=== PATIENT | female | born 1985 | race Caucasian/White ===

== ENCOUNTER 2022-01-05 10:33 | Day surgery (SDC) | payer MEDICARE ==
[~2022-01-05 10:33] MED LIST: XYLOCAINE 1% HCL 20 ML MDV ONE
[2022-01-05] MEDS ORDERED: EXPAREL 133 MG/10 ML VIAL IJ ONE (10:34)
[2022-01-05] MEDS ORDERED: Marcaine Mpf 0.5% Vial 30 Ml IJ ONE (10:34)
[2022-01-05] MEDS ORDERED: CEFAZOLIN 2 GM-D5W BAG** 2 GM/50 ML ML IV ONE (11:44)
[2022-01-05] MEDS ORDERED: Lactated Ringers 1,000 ML IV ONE ×2 (11:45→14:44)
[2022-01-05] MEDS ORDERED: Lactated Ringers 1,000 ML IV SCH (12:00)
[2022-01-05] MEDS ORDERED: CEFAZOLIN 2 GM-D5W BAG** 2 GM/50 ML ML IV SCH (12:00)
[2022-01-05] MEDS ORDERED: Pepcid 20 MG VIAL IV ONE (12:28)
[2022-01-05] MEDS ORDERED: Versed 2 MG/2 ML Injection IV PRN (12:28)
[2022-01-05] MEDS ORDERED: Transderm Scop 1.5MG Patch TOP PRN (12:28)
[2022-01-05] MEDS ORDERED: Reglan 10 MG/2 ML IV ONE (12:28)
[2022-01-05] MEDS ORDERED: Xopenex 1.25 MG/0.5 ML UD NEBULE IH ONE (12:30)
[2022-01-05] MEDS ORDERED: Sodium Chloride 3 ML UD NEBULES IH ONE (12:32)
[2022-01-05] MEDS ORDERED: Zemuron 100 MG/10 ML ONE ×2 (13:29→16:08)
[2022-01-05] MEDS ORDERED: Xylocaine-Mpf 2% 5 Ml Vial ONE (13:29)
[2022-01-05] MEDS ORDERED: Decadron 4 MG INJ ONE (13:29)
[2022-01-05] MEDS ORDERED: Zofran 4 MG/2 ML VIAL ONE (13:29)
[2022-01-05] MEDS ORDERED: DIPRIVAN 200 MG/20 ML IV ONE (13:29)
[2022-01-05] MEDS ORDERED: SUBLIMAZE 100 MCG/2 ML ONE ×3 (13:30→17:43)
[2022-01-05] MEDS ORDERED: Sensorcaine 0.25% 10 ML ONE (13:37)
[2022-01-05] MEDS ORDERED: Versed 2 MG/2 ML Injection ONE (13:38)
[2022-01-05] MEDS ORDERED: OFIRMEV 100 ML IV ONE (13:38)
[2022-01-05] MEDS ORDERED: DEXMEDETOMIDINE 80 MCG/20ML-NS IV ONE (13:39)
[2022-01-05] MEDS ORDERED: Pre-Attached Lta Kit TP ONE (14:20)
[2022-01-05] MEDS ORDERED: EPINEPHRINE 1MG/ML AMP ONE (14:40)
[2022-01-05] MEDS ORDERED: Ketamine HCl 50 MG/ML ONE ×2 (15:18→16:17)
[2022-01-05] MEDS ORDERED: BLOXIVERZ IV ONE (17:06)
[2022-01-05] MEDS ORDERED: ROBINUL ONE ×2 (17:06→17:07)
--- NOTE | 2022-01-05 17:42 | XRAY ---
Indication: Left ankle calcaneal osteotomy with lateral ankle stabilization. Intraoperative fluoroscopy provided for 3 minutes 15 seconds. 43 images ultimately demonstrates mid to posterior calcaneal osteotomy with 2 fixation screws. Correlate with intraoperative findings/report.
[2022-01-05 19:02] VITALS: BP 147/95; PULSE 72; O2SAT 98
--- NOTE | 2022-01-06 08:54 | OP ---
SURGERY DATE/TIME: 01/05/2022 1352 PREOPERATIVE DIAGNOSES: 1) Left ankle pain. 2) Lateral ankle instability. 3) Pes cavus. 4) Painful with ambulation. POSTOPERATIVE DIAGNOSES: 1) Left ankle pain. 2) Lateral ankle instability. 3) Pes cavus. 4) Painful with ambulation. PROCEDURES: 1) Ankle arthroscopy with synovectomy. 2) Lateral ankle stabilization. 3) Plantar fasciectomy. 4) Peroneus longus peroneus brevis tendon transfer. 5) Dweyer calcaneal osteotomy. SURGEON: Raymond Pruett DPM. REST ROOM MAID: None. ANESTHESIA: General plus a preoperative regional block. See anesthesia report for details. ESTIMATED BLOOD LOSS: 120 cc. MATERIALS: 2-0 Vicryl, 3-0 Nylon, 2.9 JuggerKnot to 2.9 Quattro Link, internal brace with two - 1.45 suture JuggerKnot suture anchors for Brostrom procedure, one - 6.5 x 50 with 60 mm thread and one - 6.5 x 35 mm for the Dweyer calcaneal osteotomy. INJECTABLES: See anesthesia report for details. INDICATION FOR SURGERY: Lulú is a very pleasant 36-year-old female who has a chronic history of lateral ankle instability. The patient on clinical examination and assessment had multiple rounds of ankle sprain for which she had conservative therapy for this issue. The patient has never fully recovered from her most recent lateral ankle sprain which is becoming more and more difficult for her. The patient did have a clinical examination and on weightbearing exam demonstrated a varus heel position which resulted in her wearing the outsides of her shoes fairly quickly and leading to continuous lateral ankle instability. Options have been exhausted from conservative standpoint with this treatment with immobilization, injections and physical therapy. The patient does have some weakness to the peroneus brevis on clinical examination as well as a reducible varus deformity. Discussion with the patient in regards to addressing the lateral ankle instability was had in regards to the calcaneal varus. Due to the fact that her calcaneus was varus the likelihood of the lateral ankle instability resolving with a simple addressing of the lateral ankle ligament was low or lower than if we were to address the osseous issues that resulted in her abnormal biomechanics. The patient agreed to surgical intervention. She understands all risks, complications and benefits of the procedure including but not limited to delayed skin healing, nonskin healing, under correction of deformity, possibility of need for repeat surgical intervention, possible irritating retained hardware and possibility of need for surgical intervention at a later date. No guarantees were provided as to the outcome of surgical intervention. She understands the procedure and the purpose of the procedure. Plenty of time was allowed for the patient to ask questions to the patient's apparent satisfaction. No guarantees were provided as to the outcome. It is with that we decided to proceed with surgical intervention. DESCRIPTION OF PROCEDURE AND FINDINGS: The patient is brought into the OR and placed on the OR table in the supine position. At this time a well-padded thigh tourniquet was applied to the patient's left thigh and the left lower extremity was prepped and draped in the typical sterile fashion. At this time, an 18 gauge needle with 30 cc of lactated Ringer's was injected into the ankle joint insufflating the joint. At this time, an 11 blade was utilized to make a skin incision just medial to the tibialis anterior tendon and advanced with a blunt dissection down to the level of the ankle joint capsule. At this time an obturator with trocar were introduced. The obturator was removed and the 4.0 mm 30 degree camera was introduced into the ankle joint. The camera was advanced to the lateral aspect of the ankle where an incision was made under laminated guidance to insure no damage to the superficial peroneal nerve occurred. At this time an 11 blade was utilized to make an incision and blunt dissection was made down to the level of the ankle joint. At this time the ankle was inspected and a synovectomy occurred of the anterior ankle joint capsule removing any nonviable and synovial tissue. Following this the camera and the shaver were removed from the portal site. Attention was directed to the lateral aspect of the ankle where a [place] was placed over the distal aspect of the ankle joint dissecting the talus. At this time an incision was made at the skin over the lateral aspect of the fibula. The blunt and sharp dissection was carried down to the level of the ankle joint capsule. An incision was made making a 2 mm cut around the fibula releasing the anterior talofibular ligament from this joint. At this time identification of the joint was made and the lateral wall of the talus was inspected for any nonviable tissue in this area. Scar tissue was debrided from this area. The internal brace portion of the procedure was performed. A drill with a 2.9 JuggerKnot was introduced to the lateral aspect of the junction of the neck and the body of the talus aiming dorsal so not to violate the posterior facet this was checked under fluoroscopic guidance. Following this the JuggerKnot was introduced and checked to insure that there is minimal slippage of the JuggerKnot this was advanced utilizing [employer] Link with the foot inverted into the fibula under minimal tension and then internal brace component of the procedure was finished. Following this stress views were taken demonstrating no longer any gapping at the lateral ankle. Following this the Brostrom portion of the procedure was carried out utilizing two - 1.45 JuggerKnot into the foot print of the fibula and re-approximating the anterior talofibular ligament as well as the extensor retinaculum in a Brostrom-Otoole type procedure. Following this, attention was directed under fluoroscopic guidance to the lateral aspect of the calcaneus where a [place] was utilized to plan out the surgical site for the Dweyer calcaneal osteotomy. Incision was carried down utilizing a 15 blade being careful not to violate any neurovascular structures. The sural nerve was encountered in this area and was reflected out of the surgical site. At this time, attention was directed to the plantar aspect of the incision where the plantar stripping portion of the procedure was carried out except for the adductor hallucis portion of the resection which was carried out after the Dweyer calcaneal osteotomy. At this time the peroneal tendon sheath was incised and the peroneal tendons were scored. The peroneus longus tendon was identified and resected. Gentle abrasion of both tendons occurred at the resection point and under tension the peroneus longus was tenodesed to the peroneus longus tendon to give extra power with eversion. Following this a Dweyer calcaneal osteotomy was performed. The guide wires were 2.0 mm and utilized to plan out the osteotomy angles. The proximal K-wire was used to mimic the position of the longitudinal axis of the tibia and the distal K-wire was used to mimic the angle of the calcaneus. An approximate 9 mm wedge was then resected from the heel utilizing a 31 mm blade and then finished utilizing osteotome. The wedge was removed the site in one piece. Following this, K-wires were introduced from the calcaneal tuber into the body of the calcaneus checking its position under fluoroscopic guidance. Under the lateral calcaneal view, there was minimal displacement and the varus position was corrected. Following this, a 35 mm x 6.5 partially threaded screw was introduced into the calcaneus, this was checked under fluoroscopic guidance and the position was deemed in slight valgus position. Following this the incision sites were cleansed with copious amounts of sterile saline. 2-0 Vicryl was utilized to coapt the subcutaneous skin in a single interrupted-type fashion and 3-0 Nylon was utilized in horizontal mattress and simple interrupted-type fashion to the incision site. A dressing consisting of Betadine, Adaptic, 4x4, Kerlix was applied to the left ankle and then a very well-padded posterior splint was applied to the patient's left ankle with the foot orthogonal relative to the longitudinal aspect of the leg. The patient was then reversed from anesthesia and returned to the postoperative anesthesia care unit with vital signs stable and vascular status intact. The patient handled the procedure as well as the anesthesia without significant complication. Postoperative orders as indicated in the patient's discharge chart.
--- NOTE | 2022-01-06 14:54 | XRAY ---
3 minutes and 15 seconds of fluoroscopy was used in surgery for a left ankle calcaneal osteotomy with lateral ankle stabilization
== END 2022-01-05 19:05 | disposition home or self-care (01) ==
LOC: SDC 10:33
PROVIDERS: ATTEND Podiatrist Foot & Ankle Surgery
DX: M25.372 Other instability, left ankle (principal); M25.572 Pain in left ankle and joints of left foot; Q66.72 Congenital pes cavus, left foot; R26.2 Difficulty in walking, not elsewhere classified; M79.672 Pain in left foot; M65.872 Other synovitis and tenosynovitis, left ankle and foot; R26.89 Other abnormalities of gait and mobility
CPT/HCPCS: 27690; 27698; 28060; 28300; 29898; 73610; 76000; 94640; C1713; 64450; J0171; J0690; J1100; J2250; J2405; J2704; J2710; J3010; A9270-GY

== ENCOUNTER 2025-03-21 11:13 | Day surgery (SDC) | payer MEDICARE ==
[2025-03-21] MEDS ORDERED: CEFAZOLIN SODIUM ONE (11:20)
[2025-03-21] MEDS: Lactated Ringers 1,000 ML IV SCH (12:15)
[2025-03-21 12:33] VITALS: RESP 18
[2025-03-21 13:00] LABS: Hematocrit 43.2 % (34.1-44.9); Hemoglobin 14.1 g/dL (11.2-15.7); Mean Corpuscular Hemoglobin 32.6 pg (25.6-32.2); Mean Corpuscular Hgb Concent. 32.6 g/dL (32.2-35.5); Platelet Count 143 x10^3/uL (182-369); Red Blood Count 4.33 x10^6/uL (3.93-5.22); White Blood Count 7.3 x10^3/uL (3.98-10.04)
[2025-03-21 13:16] LABS: Calcium 8.6 mg/dL (8.4-10.2); Carbon Dioxide 22.0 mmol/L (22-30); Creatinine 1 0.62 mg/dL (0.52-1.04); EST GLOMERULAR FILTRATION RATE 114.7 ML/MIN; Glucose 88.0 mg/dL (74-106); Potassium 4.4 mmol/L (3.5-5.1); SGOT/AST 23.0 U/L (14-36); SGPT/ALT 19.0 U/L (0-35); Total Protein 6.7 g/dL (6.3-8.2)
[2025-03-21] MEDS ORDERED: Marcaine Mpf 0.5% Vial 30 Ml ONE (13:18)
[2025-03-21] MEDS ORDERED: Xylocaine 1% Vial 30 ML PF IJ ONE (13:18)
[2025-03-21] MEDS ORDERED: Versed 2 MG/2 ML Injection ONE (13:33)
[2025-03-21] MEDS ORDERED: propofoL IV ONE (13:33)
[2025-03-21] MEDS ORDERED: SUBLIMAZE 100 MCG/2 ML ONE ×3 (13:33→16:59)
[2025-03-21] MEDS ORDERED: ROCURONIUM BROMIDE IV ONE ×2 (13:33→14:37)
[2025-03-21] MEDS ORDERED: Xylocaine-Mpf 2% 5 Ml Vial ONE (13:40)
[2025-03-21] MEDS ORDERED: Marcaine 0.5%/Epinephrine 10 ML ONE (15:45)
[2025-03-21] MEDS ORDERED: BRIDION 200MG/2ML IV ONE (15:56)
[2025-03-21] MEDS ORDERED: Lactated Ringers 1,000 ML IV ONE (15:59)
[2025-03-21] MEDS ORDERED: DILAUDID 0.5 MG/0.5 ML SYRINGE ONE (16:39)
[2025-03-21] MEDS ORDERED: TORAdol 30 mg Injection ONE (16:39)
[2025-03-21] MEDS ORDERED: Zofran 4 MG/2 ML VIAL ONE (16:51)
[2025-03-21 17:46] VITALS: TEMP 96.8
[2025-03-21 17:55] VITALS: BP 109/68; PULSE 82; O2SAT 98
--- NOTE | 2025-03-21 18:25 | XRAY ---
Indication: Left ankle hardware removal. Calcaneal peroneal tendon department. Intraoperative fluoroscopy provided for 1 minute 51 seconds. 6 digital spot images submitted for interpretation demonstrates removal of one of 2 calcaneal orthopedic screws. Correlate with intraoperative findings/report. Additional cine images obtained to evaluate ankle stability.
--- NOTE | 2025-03-22 13:37 | XRAY ---
One minute and 51 seconds of fluoroscopy was used in surgery for a left ankle hardware removal. Calcaneal peroneal tendon department.
--- NOTE | 2025-03-25 12:36 | OP ---
SURGERY DATE/TIME: 03/21/2025 [id number] PREOPERATIVE DIAGNOSES: 1) Left ankle pain. 2) Left ankle synovitis. 3) Painful orthopedic hardware, left calcaneus. 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 6) Peroneus brevis tear. 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 POSTOPERATIVE DIAGNOSES: 1) Left ankle pain. 2) Left ankle synovitis. 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 6) Peroneus brevis tear. 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 PROCEDURES: 1) Left ankle arthroscopy with extensive synovectomy. 2) Removal of hardware, calcaneus. 3) Peroneus brevis tendon debridement. 4) Peroneus longus tendon debridement. 5) Peroneus brevis to longus tendon transfer. 6) Superior peroneal retinaculum repair. 7) Sural nerve decompression. SURGEON: Raymond Pruett DPM [employer] COACH: ELDER Hernandez ANESTHESIA: General plus a postoperative popliteal and saphenous block. ESTIMATED BLOOD LOSS: Approximately 15 mL. MATERIALS: A 1.45 JuggerKnot and a 2.0 ActivBraid. FINDINGS: Severely degenerated peroneus brevis longitudinal tearing and nutritional changes, inflamed synovium within the ankle joint, stable superior peroneal retinaculum following surgical repair, and severely thickened scar tissue causing sural nerve entrapment. INDICATIONS FOR PROCEDURE: The patient is a very pleasant 39-year-old female who is known to my service from a previous surgical intervention for a cavus foot. From that standpoint, patient has been having some moderate pain following her procedure; however, she has had issues with her insurance and only recently got this back from that standpoint. She has returned approximately 5 years after surgical intervention with pain over the screw sites as well as some new pain at the level of the peroneal tendons which was not addressed in previous encounter. From that standpoint, patient did have an MRI which demonstrated some tendinopathy, however, not extreme. Decision was made to address these issues as well as pain at the level of ankle joint where we decided to go forward with a scope. Patient has been made aware of all risks, complications, and benefits of surgical intervention including but not limited to infection, hematoma, seroma, possibility of delayed wound healing, non-wound healing, and possible need for further surgical intervention at a later date. There was no guarantee provided as to the outcome of surgical intervention; however, the goal was to reduce pain and improve function. From that standpoint, all questions were answered to the patient's apparent satisfaction. It is at this time we decided to proceed. DESCRIPTION OF PROCEDURE AND FINDINGS: Patient was brought into the operating theater and placed on the operating room table in the supine position. At this time, general anesthesia was administered and the patient was adequately sedated. Once the patient was sedated, a well-padded thigh tourniquet was applied to the patient's left thigh and the tourniquet was set to 320. The left lower extremity was prepped and draped in the typical sterile fashion and lowered onto the surgical field. At this time, attention was directed to the structures at the medial and lateral ankle, the medial and lateral malleolus, and the palpable dell at the anterior aspect of the left ankle joint. Once these landmarks were identified, this helped us establish our portal at the anteromedial side. First, insufflation took place at the anteromedial site seeing characteristic rise or dorsiflexion of the foot. Once this occurred, a 10 blade was then utilized to make a small skin incision at the level of the anteromedial portal site. A curved mini hemostat was then utilized to open the capsule of the ankle joint and the obturator, and trocar were introduced. The obturator was then removed and then the 4.0 x 30-degree camera was introduced into this area. Immediately, there was a significant amount of synovitis where decision was made to establish the lateral portal and start with the shaver. The lateral portal was established in a similar fashion introducing the 3.4 mm shaver. Once this was inside the joint, triangulation was utilized to find myself and then shaving began revealing a very scarred joint with a significant amount of hemorrhagic synovitis and scar tissue. This was removed from both medial and lateral gutters as well as inspection of the tibiotalar joint surface which was deemed to be adequate with assessment with probe. The scope and the shaver were then reversed into alternative sites and further debridement took place. This was then removed from the site. Decision was made to move forward with the removal of the hardware from the posterior calcaneus where under direct fluoroscopic guidance of calcaneal axial and lateral views. Alternating between these 2 views, the cannulated screws were found and removed relatively easily. This was handed off the field at this time. Once the hardware was removed, an Esmarch was utilized to exsanguinate the leg and the tourniquet was then inflated. Attention was directed to the lateral ankle where a linear incision was made over the footprint of the posterior border of the fibula. Stress views were taken at this time demonstrating relatively competent lateral ankle ligaments; however, there was a characteristic inverted footdrop when the patient was first placed on the table. CFL was stressed and deemed to be slightly incompetent; however, attention was directed to the peroneus brevis and peroneus longus where a significant and severe degradation of the peroneus brevis and longus tendon were identified. It was at this time we called the patient's and notified him of the amount of disease that was seen compared to what was seen in the MRI and deferred to him for decision-making. From that standpoint, patient's did agree to going forward with the tendon transfer. These portions of the tendon were excised. There was a healthy rim into the peroneus brevis at its distal extent where we harvested. The 2 ends of the peroneus brevis and peroneus longus were resected and pulled under tension utilizing Chen and Allis and then sandwiching the distal fragment between these 2 components. We were able to suture this together. It was noticed at this time that the foot fell into a neutral alignment and within the fibular groove there was no overstuffing. At this time, the superior peroneal retinaculum was then repaired utilizing a 1.45 JuggerKnot into the tip of the fibula repairing the superior peroneal retinaculum gaining significant amount of increased stability. It was noted at this time that looking into the well of the peroneal tendon repair that there was a significant amount of scar tissue surrounding the sural nerve and a decompression took place at the level of the sural nerve making sure not to damage the nerve; however, the amount of scar tissue was profound. Neurolysis and decompression were performed with careful dissection under loupe magnification fraying the nerve along its course with no further adhesion seen proximal or distal to the site. At this time, copious amounts of sterile saline were utilized to irrigate the wound. Layered closure was performed utilizing 4-0 Monocryl and 3-0 nylon. At this time, dressing consisting of Betadine, Adaptic, 4 x 4, Kerlix, ABD, and a well-padded posterior splint with sugar tong was applied to the patient's left lower extremity with the foot orthogonal relative to the longitudinal axis of the leg. Patient was then reversed from anesthesia. In the PACU, she was provided a popliteal and saphenous block. Patient was returned to the PACU with vital signs stable and vascular status intact. The patient handled the procedure as well as the anesthesia without significant complication. Postoperative orders are as indicated in the patient's discharge chart.
== END 2025-03-21 18:05 | disposition home or self-care (01) ==
LOC: SDC 11:13
PROVIDERS: ATTEND Podiatrist Foot & Ankle Surgery
DX: M65.872 Other synovitis and tenosynovitis, left ankle and foot (principal); M25.572 Pain in left ankle and joints of left foot; T84.84XA Pain due to internal orthopedic prosthetic devices, implants and grafts, initial encounter; M76.72 Peroneal tendinitis, left leg; S86.312A Strain of muscle(s) and tendon(s) of peroneal muscle group at lower leg level, left leg, initial encounter
CPT/HCPCS: 20680; 27658; 27675; 27691; 29898; 36415; 64718; 73610; 76000; 80053; 85027; C1713